=== PATIENT | male | born 1960 | race Two or more races ===

== ENCOUNTER 2023-04-09 05:48 | Inpatient (IN) | payer MEDICARE, OTHER ==
[~2023-04-09] VITALS: Ht 172.7 cm; Wt 122.0 kg
[~2023-04-09 05:48] MED LIST: AMLO-212 PO; ASPI-1169 PO; BLOO-668 IN; CLOTRIMAZOLE 1% TP; DAPA10TA PO; FOLI0.8T3 PO; FURO40TA5 PO; HYDR-3972 PO; IBUP-1955 PO; ICOS1CAP PO; INSU100I30 SQ; LOSA50TA3 PO; METF-440 PO; MONT10TA22 PO; OZEMPIC SQ; RANO500T6 PO; ROSU20TA2 PO; SACU1TAB7 PO; SENN-261 PO; TAMS-12 PO
[2023-04-09 06:10] VITALS: BP 146/78; TEMP 97.7; O2SAT 97
[2023-04-09] MEDS ORDERED: LIDOCAINE 2%-EPI 1:100,000 30 ML VIAL ONE (07:14)
[2023-04-09] MEDS ORDERED: VANCOMYCIN 1 GM VIAL ONE (07:15)
[2023-04-09] MEDS ORDERED: dexaMETHasone SOD PHOSPHATE 0 ML ONE (07:15)
[2023-04-09 07:36] VITALS: BP 146/78; TEMP 97.7; O2SAT 97
== END 2023-04-09 08:25 | disposition left against medical advice (07) | DRG 561 ==
LOC: DS 05:48 → MED 05:50
PROVIDERS: ADMIT Dentist Oral and Maxillofacial Surgery; ATTEND Dentist Oral and Maxillofacial Surgery
DX: T84.69XA Infection and inflammatory reaction due to internal fixation device of other site, initial encounter (principal); Y83.8 Other surgical procedures as the cause of abnormal reaction of the patient, or of later complication, without mention of misadventure at the time of the procedure; Y92.009 Unspecified place in unspecified non-institutional (private) residence as the place of occurrence of the external cause; J32.0 Chronic maxillary sinusitis; I11.0 Hypertensive heart disease with heart failure; I50.9 Heart failure, unspecified; E11.9 Type 2 diabetes mellitus without complications; Z79.4 Long term (current) use of insulin; Z79.84 Long term (current) use of oral hypoglycemic drugs; Z79.82 Long term (current) use of aspirin; Z79.899 Other long term (current) drug therapy; Z79.85 Long-term (current) use of injectable non-insulin antidiabetic drugs; Z53.8 Procedure and treatment not carried out for other reasons
CPT/HCPCS: 87081-TC; G0378; J1100; J3370; J3490

== ENCOUNTER 2024-05-26 06:37 | Day surgery (SDC) | payer MEDICARE, OTHER ==
[2024-05-26] MEDS ORDERED: LIDOCAINE 2%-EPI 1:100,000 30 ML VIAL ONE (06:46)
[2024-05-26] MEDS ORDERED: OXYMETAZOLINE HCL NASAL SPRAY 30 ML BOTTLE NS ONE (06:47)
[2024-05-26] MEDS ORDERED: dexaMETHasone SOD PHOSPHATE 0 ML ONE (06:47)
[2024-05-26] MEDS ORDERED: VANCOMYCIN 1 GM VIAL ONE (06:47)
[2024-05-26] MEDS ORDERED: FENTANYL PF 250MCG/5ML AMPUL ONE (07:11)
[2024-05-26] MEDS ORDERED: ROCURONIUM BROMIDE 50 MG/5 ML ONE (07:12)
== END 2024-05-26 08:30 | disposition home or self-care (01) ==
LOC: DS 06:37
PROVIDERS: ATTEND Dentist Oral and Maxillofacial Surgery
DX: J32.0 Chronic maxillary sinusitis (principal); Z53.8 Procedure and treatment not carried out for other reasons; I11.0 Hypertensive heart disease with heart failure; I50.9 Heart failure, unspecified; I25.10 Atherosclerotic heart disease of native coronary artery without angina pectoris; E11.9 Type 2 diabetes mellitus without complications; F17.200 Nicotine dependence, unspecified, uncomplicated; Z79.82 Long term (current) use of aspirin; Z79.84 Long term (current) use of oral hypoglycemic drugs; Z79.899 Other long term (current) drug therapy; Z88.0 Allergy status to penicillin; Z98.890 Other specified postprocedural states
CPT/HCPCS: 36415; 82962-TC; 85730-TC; J1100; J3010; J3370; J3490